=== PATIENT | female | born 1990 | race Caucasian/White ===

== ENCOUNTER 2016-11-27 21:00 | Emergency (ER) | payer OTHER ==
[2016-11-27 21:22] VITALS: BP 112/75; PULSE 89; RESP 18; TEMP 98.1; O2SAT 97
--- NOTE | 2016-11-27 22:20 | C.PDOC ---
History Of Present Illness Patient is a 26 year old female who presents to the ER with a complaint of cough , congestion, sore throat, and malaise for the past 4 days. Patient reports taking ibuprofen at home with no relief. Denies sick contact, fever, nausea, or vomiting. Time Seen by Provider: 11/27/16 21:39 Chief Complaint (Nursing): Flu-like Symptoms History Per: Patient History/Exam Limitations: no limitations Onset/Duration Of Symptoms: Days (4) Current Symptoms Are (Timing): Still Present Location Of Pain: Throat (sore) Associated Symptoms: Sore Throat, Cough, Nasal Congestion. denies: Fever, Nausea, Vomiting Past Medical History Reviewed: Historical Data, Nursing Documentation, Vital Signs Vital Signs: Last Vital Signs Temp 98.1 F 11/27/16 21:17 Pulse 89 11/27/16 21:17 Resp 18 11/27/16 21:17 BP 112/75 11/27/16 21:17 Pulse Ox 97 11/28/16 01:56 - Medical History PMH: Asthma, Cardia Arrhythmia - [facility] Procedures APPLICATION OF SPLINT (03/27/15) Family History: States: Unknown Family Hx - Social History Hx Tobacco Use: No Hx Alcohol Use: No Hx Substance Use: No - Immunization History Hx Tetanus Toxoid Vaccination: Yes Hx Influenza Vaccination: No Hx Pneumococcal Vaccination: No Review Of Systems Except As Marked, All Systems Reviewed And Found Negative. Constitutional: Negative for: Fever ENT: Positive for: Nose Congestion, Throat Pain (Sore) Cardiovascular: Negative for: Chest Pain, Palpitations Respiratory: Positive for: Cough. Negative for: Shortness of Breath Gastrointestinal: Negative for: Nausea, Vomiting Physical Exam - Physical Exam Appears: Well, Non-toxic Skin: Normal Color, Warm, Dry Head: Atraumatic, Normacephalic Nose: Normal, No Discharge Oral Mucosa: Moist Gingiva: Normal Appearing Throat: Other (Left tonsilar exudate) Lymphatic: Other (Tender submandibular adenopathy) Chest: Symmetrical Cardiovascular: Rhythm Regular Respiratory: Normal Breath Sounds, No Rales, No Rhonchi, No Wheezing Gastrointestinal/Abdominal: Soft, No Tenderness Neurological/Psych: Oriented x3, Normal Speech, Normal Cognition ED Course And Treatment O2 Sat by Pulse Oximetry: 97 (Room air) Pulse Ox Interpretation: Normal Disposition Counseled Patient/Family Regarding: Diagnosis, Need For Followup, Rx Given - Disposition Referrals: [facility] [Outside] Disposition: HOME/ ROUTINE Disposition Time: 22:17 Condition: GOOD Additional Instructions: Please follow up with PMD Increase PO fluids Gargle with warm salt water Return to ER if worse Prescriptions: Amoxicillin 500 mg PO TID #21 tab Benzonatate [Tessalon Perles] 100 mg PO TID #20 sgl Instructions: Pharyngitis (ED), Upper Respiratory Infection (ED) - Clinical Impression Clinical Impression: Upper respiratory infection, Pharyngitis - Scribe Statement The provider has reviewed the documentation as recorded by the Scribe David Sow All medical record entries made by the Rekhaiblita were at my direction and personally dictated by me. I have reviewed the chart and agree that the record accurately reflects my personal performance of the history, physical exam, medical decision making, and the department course for this patient. I have also personally directed, reviewed, and agree with the discharge instructions and disposition.
== END 2016-11-27 22:38 | disposition home or self-care (01) ==
LOC: C.ER 21:00
DX: J02.9 Acute pharyngitis, unspecified (principal)

== ENCOUNTER 2017-01-17 18:53 | Emergency (ER) | payer OTHER ==
[2017-01-17 19:13] VITALS: BP 120/66; PULSE 82; RESP 18; TEMP 97.7; O2SAT 100
[2017-01-17] MEDS ORDERED: Naproxen 550 mg Tab PO STA (19:39)
[2017-01-17] MEDS ORDERED: Naproxen 550 mg Tab PO ONE (19:42)
--- NOTE | 2017-01-17 20:13 | C.PDOC ---
History Of Present Illness 26 yo female c/o right thumb pain in 830 am when she lifted a double stroller over a curb. Notes h/o thumb sprain last year. Right hand dominant. TOok Tylenol without relief. Time Seen by Provider: 01/17/17 19:23 Chief Complaint (Nursing): Finger,Hand,&Wrist History Per: Patient History/Exam Limitations: no limitations Onset/Duration Of Symptoms: Hrs Current Symptoms Are (Timing): Still Present Past Medical History Vital Signs: Last Vital Signs Temp 97.7 F 01/17/17 19:12 Pulse 82 01/17/17 19:12 Resp 18 01/17/17 19:12 BP 120/66 01/17/17 19:12 Pulse Ox 100 01/17/17 19:12 - Medical History PMH: Asthma, Cardia Arrhythmia - [facility] Procedures APPLICATION OF SPLINT (03/27/15) Family History: States: Unknown Family Hx - Social History Hx Tobacco Use: No Hx Alcohol Use: No Hx Substance Use: No - Immunization History Hx Tetanus Toxoid Vaccination: Yes Hx Influenza Vaccination: No Hx Pneumococcal Vaccination: No Review Of Systems Except As Marked, All Systems Reviewed And Found Negative. Musculoskeletal: Positive for: Other ((+) thumb pain) Physical Exam - Physical Exam Appears: Well, Non-toxic, No Acute Distress Skin: Normal Color, Warm, Dry Head: Atraumatic, Normacephalic Eye(s): bilateral: Normal Inspection, EOMI Nose: Normal Oral Mucosa: Moist Neck: Normal, Normal ROM, Supple Chest: Symmetrical Respiratory: No Accessory Muscle Use (speaking in full sentences) Extremity: Normal ROM, Tenderness (PIP of right thumb. No snuff box tenderness. No wrist tenderness. No swelling. No ecchymosis), Capillary Refill (<2 sec), No Swelling Extremity: Bilateral: Normal Color And Temperature, Normal ROM Pulses: Left Radial: Normal, Right Radial: Normal Neurological/Psych: Oriented x3, Normal Speech, Normal Cognition, Normal Motor, Normal Sensation ED Course And Treatment O2 Sat by Pulse Oximetry: 100 Progress Note: Finger splint applied by technical clerk. Instructed ortho follow up in 1-2 days. Return to ER if symptoms persist or worsen. Disposition - Disposition Referrals: Marcio Barber III, MD [Staff Provider] - Disposition: HOME/ ROUTINE Disposition Time: 20:16 Condition: STABLE Additional Instructions: Follow up with referral physician in 1-2 days without fail for further evaluation. Take medications as prescribed. Return to the emergency department at any time if symptoms persist or worsen. Prescriptions: Naproxen [Naprosyn] 1 tab PO BID PRN #20 tab PRN Reason: Pain Instructions: Finger Sprain (ED) - Clinical Impression Clinical Impression: Sprained thumb
--- NOTE | 2017-01-18 12:43 | RAD ---
PROCEDURE: Right Thumb radiographs. HISTORY: trauma COMPARISON: Right thumb radiographs performed 03/27/15 TECHNIQUE: AP radiograph of the right hand, as well as spot oblique and lateral images of thumb were obtained. FINDINGS: RIGHT THUMB: Unremarkable right 1st digit without acute displaced fracture identified. Remainder of the right hand (as seen on the AP view) grossly unremarkable. JOINTS: No dislocation. SOFT TISSUES: Soft tissue swelling. No evidence of radiopaque foreign body. OTHER FINDINGS: None. IMPRESSION: Soft tissue swelling. No acute displaced fracture or dislocation identified. If symptoms persist or if there is continued clinical concern, x-ray follow-up in 7-10 days should be considered.
== END 2017-01-17 20:39 | disposition home or self-care (01) ==
LOC: C.ER 18:53
DX: S63.601A Unspecified sprain of right thumb, initial encounter (principal); X50.0XXA Overexertion from strenuous movement or load, initial encounter; Y93.89 Activity, other specified; Y92.414 Local residential or business street as the place of occurrence of the external cause

== ENCOUNTER 2017-01-18 21:29 | Emergency (ER) | payer OTHER ==
[2017-01-18 21:42] VITALS: BP 122/85; PULSE 71; RESP 16; TEMP 98; O2SAT 99
--- NOTE | 2017-01-18 22:13 | C.PDOC ---
History Of Present Illness 26 yo female come in for re-evaluation of Right thumb pain developed for past 2 days. Pt reports, was seen here in ED yesterday, when xray performed with normal results. Splint applied. Pt sts, " today went to work and use my right hand and pain worsen". Pain is over Right thumb area, intermittent, aching, worse with thumb movement and 2nd,3rd finger extension. Otherwise, pt denies weakness, sensory or vascular deficits to Right hand. Ambulate to ED, noted aluminium finger splint on Right thumb. Time Seen by Provider: 01/18/17 21:50 Chief Complaint (Nursing): Finger,Hand,&Wrist History Per: Patient PMH Reviewed: Historical Data, Nursing Documentation, Vital Signs - Family History Family History: States: No Known Family Hx - Immunization History Hx Tetanus Toxoid Vaccination: Yes Hx Influenza Vaccination: No Hx Pneumococcal Vaccination: No Review Of Systems Except As Marked, All Systems Reviewed And Found Negative. Constitutional: Negative for: Fever, Chills Musculoskeletal: Positive for: Hand Pain Skin: Negative for: Rash, Bruising Neurological: Negative for: Weakness, Numbness Pedatric Physical Exam - Physical Exam Appears: Well Appearing, Non-toxic, No Acute Distress Skin: Normal Color, Warm, No Rash, No Ecchymosis Extremity: Normal ROM, Tenderness (MILD TENDERNESS OVER RIGHT THUMB. NO EDEMA, NO ERYTHEMA, NO NEUROVASCULAR DEFICIST DISTALLY.), Capillary Refill (LESS THAN 2SEC TO RIGHT HAND), No Deformity, No Swelling Neurological/Psych: Oriented x3, Normal Motor, Normal Sensation, Normal Reflexes ED Course And Treatment O2 Sat by Pulse Oximetry: 99 Pulse Ox Interpretation: Normal Progress Note: On re-evaluation, pt is afebrile, non-toxic. RUE: exam c/w Right thumb sprain, radial neuropathy. FAROM, not in any apparent distress. Splint applied. Pt advised. Ref to F/U with hand specialist in 2 days. Orthopedic Time Performed: 22:10 Time Out: Side verified, Site verified, Patient ID confirmed Procedure: Splint Type: Thumb spica Location: Right, Hand Consent obtained: Verbal Performed by: Mid-level Provider Diagnosis: Sprain Disposition Counseled Patient/Family Regarding: Diagnosis, Need For Followup - Disposition Referrals: Neeraj Chery [Medical Doctor] - Disposition: HOME/ ROUTINE Disposition Time: 22:10 Condition: STABLE Additional Instructions: Splint for 1 week Take medication as prescribed Follow up with Hand specialist in 2 days for re-evaluation as need Return if any worsening or new changes. Prescriptions: Ibuprofen [Motrin Tab] 600 mg PO Q6 #20 tab Instructions: Paresthesia (ED), Finger Sprain (ED) - Clinical Impression Clinical Impression: Finger sprain, Right radial neuritis
== END 2017-01-18 22:54 | disposition home or self-care (01) ==
LOC: C.ER 21:29
DX: S63.601D Unspecified sprain of right thumb, subsequent encounter (principal); X58.XXXD Exposure to other specified factors, subsequent encounter; M79.2 Neuralgia and neuritis, unspecified

== ENCOUNTER 2017-12-14 17:07 | Emergency (ER) | payer OTHER ==
[2017-12-14 17:16] VITALS: BMI 30.9
[2017-12-14 17:19] VITALS: BP 119/80; PULSE 68; RESP 18; TEMP 98.4; O2SAT 98
[2017-12-14] MEDS ORDERED: Albuterol-Ipratrop 3 mg / 0.5 (3 ml) UD ONE ×2 (17:24→18:09)
[2017-12-14] MEDS: Albuterol-Ipratrop 3 mg / 0.5 (3 ml) UD IH SCH ×2 (18:00→18:11)
--- NOTE | 2017-12-14 18:08 | C.PDOC ---
History Of Present Illness 27 year old female with a Hx of asthma and tachycardia presents to the ER with a complaint of difficulty breathing for the past 3 days, associated with a productive cough with dark yellow/green sputum. Patient states she has been using her pump with no relief. Denies fever, sore throat, recent travel, or sick contact. Time Seen by Provider: 12/14/17 17:24 Chief Complaint (Nursing): Cough, Cold, Congestion History Per: Patient History/Exam Limitations: no limitations Onset/Duration Of Symptoms: Days Current Symptoms Are (Timing): Still Present Location Of Pain: None Sick Contacts (Context): None Associated Symptoms: Cough, Sputum. denies: Fever, Sore Throat Ear Symptoms: Bilateral: None Recent travel outside of the [place]: No Past Medical History Reviewed: Historical Data, Nursing Documentation, Vital Signs Vital Signs: Last Vital Signs Temp 98.4 F 12/14/17 17:16 Pulse 68 12/14/17 17:16 Resp 18 12/14/17 17:16 BP 119/80 12/14/17 17:16 Pulse Ox 98 12/14/17 18:45 - Medical History PMH: Asthma, Cardia Arrhythmia - [facility] Procedures APPLICATION OF SPLINT (03/27/15) Family History: States: Unknown Family Hx - Social History Hx Tobacco Use: No Hx Alcohol Use: No Hx Substance Use: No - Immunization History Hx Tetanus Toxoid Vaccination: No Hx Influenza Vaccination: Yes Hx Pneumococcal Vaccination: No Review Of Systems Constitutional: Negative for: Fever, Chills ENT: Negative for: Throat Pain Cardiovascular: Negative for: Chest Pain Respiratory: Positive for: Cough, Sputum, Other (Difficulty breathing) Gastrointestinal: Negative for: Nausea, Vomiting Physical Exam - Physical Exam Appears: Non-toxic Skin: Normal Color, Warm, Dry Head: Atraumatic, Normacephalic Eye(s): bilateral: Normal Inspection Ear(s): Bilateral: Normal Nose: Normal Oral Mucosa: Moist Throat: Normal, No Erythema, No Exudate Neck: Normal, Supple Chest: Symmetrical, No Tenderness Cardiovascular: Rhythm Regular Respiratory: No Rales, No Rhonchi, Wheezing (Mild expiratory) Neurological/Psych: Oriented x3, Normal Speech ED Course And Treatment O2 Sat by Pulse Oximetry: 98 (Room air) Pulse Ox Interpretation: Normal Medical Decision Making Medical Decision Making: CXR ordered. Albuterol nebulizer administered. On reevaluation, patient is resting comfortably in the ER in no acute distress with clear breath sounds, will discharge home with instructions to follow up with PMD or return if symptoms worsen. Disposition - Disposition Referrals: Neeraj Chery [Medical Doctor] - Disposition: HOME/ ROUTINE Disposition Time: 18:46 Condition: IMPROVED Additional Instructions: Follow up with the medical doctor within 1-2 days. Return if worsened. Prescriptions: Albuterol 0.5% [Albuterol 0.5% Inhal Miriam (2.5 mg/0.5 ml) UD] 0.5 ml IH Q6 PRN # 20 neb PRN Reason: Wheezing Loratadine [Claritin] 10 mg PO DAILY #10 tab Nebulizer Accessories [Reusable Nebulizer Kit] 1 each MC Q4 #1 kit predniSONE [Prednisone] 20 mg PO BID #10 tab Instructions: Acute Bronchitis Forms: [employer] (Malaysian) - Clinical Impression Clinical Impression: Bronchitis - PA / PERSONAL CAREGIVER / Resident Statement MD/DO has reviewed & agrees with the documentation as recorded. - Scribe Statement The provider has reviewed the documentation as recorded by the Scriblita Sow All medical record entries made by the Rekhaiblita were at my direction and personally dictated by me. I have reviewed the chart and agree that the record accurately reflects my personal performance of the history, physical exam, medical decision making, and the department course for this patient. I have also personally directed, reviewed, and agree with the discharge instructions and disposition.
--- NOTE | 2017-12-14 18:09 | RAD ---
HISTORY: cough, wheeze, rhonchi COMPARISON: No prior. TECHNIQUE: Chest PA and lateral FINDINGS: LUNGS: No active pulmonary disease. PLEURA: No significant pleural effusion identified. No pneumothorax apparent. CARDIOVASCULAR: Normal. OSSEOUS STRUCTURES: No significant abnormalities. VISUALIZED UPPER ABDOMEN: Normal. OTHER FINDINGS: Bilateral nipple rings are present. IMPRESSION: No active disease.
--- NOTE | 2017-12-14 18:43 | C.PDOC ---
Time Seen by Provider: 12/14/17 17:24 Chief Complaint (Nursing): Cough, Cold, Congestion Past Medical History Vital Signs: Last Vital Signs Temp 98.4 F 12/14/17 17:16 Pulse 68 12/14/17 17:16 Resp 18 12/14/17 17:16 BP 119/80 12/14/17 17:16 Pulse Ox 98 12/14/17 18:12 - Medical History PMH: Asthma, Cardia Arrhythmia - [facility] Procedures APPLICATION OF SPLINT (03/27/15) Family History: States: Unknown Family Hx - Social History Hx Tobacco Use: No Hx Alcohol Use: No Hx Substance Use: No - Immunization History Hx Tetanus Toxoid Vaccination: No Hx Influenza Vaccination: Yes Hx Pneumococcal Vaccination: No ED Course And Treatment O2 Sat by Pulse Oximetry: 98 (Room air) Disposition - Disposition Referrals: Neeraj Chery [Medical Doctor] - Disposition: HOME/ ROUTINE Disposition Time: 18:40 Condition: IMPROVED Additional Instructions: Follow up with the medical doctor within 1-2 days. Return if worsened. Prescriptions: Albuterol 0.5% [Albuterol 0.5% Inhal Miriam (2.5 mg/0.5 ml) UD] 0.5 ml IH Q6 PRN # 20 neb PRN Reason: Wheezing Loratadine [Claritin] 10 mg PO DAILY #10 tab Nebulizer Accessories [Reusable Nebulizer Kit] 1 each MC Q4 #1 kit predniSONE [Prednisone] 20 mg PO BID #10 tab Instructions: Acute Bronchitis Forms: [facility] (Montenegrin) - Clinical Impression Clinical Impression: Bronchitis
== END 2017-12-14 18:50 | disposition home or self-care (01) ==
LOC: C.ER 17:07
DX: J40 Bronchitis, not specified as acute or chronic (principal)

== ENCOUNTER 2017-12-18 19:29 | Emergency (ER) | payer OTHER ==
[2017-12-18 19:30] VITALS: BMI 30.9
[2017-12-18 19:45] VITALS: O2SAT 99
[2017-12-18] MEDS ORDERED: Magnesium Sulfate 1 gm in D5W 1 GM/100 ML BAG IVPB ONE (20:19)
[2017-12-18] MEDS ORDERED: Albuterol 0.083% Inhal Sol (2.5 mg/3 mL) UD ONE (20:19)
[2017-12-18] MEDS ORDERED: Albuterol-Ipratrop 3 mg / 0.5 (3 ml) UD ONE (20:19)
[2017-12-18 20:20] LABS: BASO % 0.5 % (0.0-2.0); EOS % 0.1 % (0.0-4.0); HEMOGLOBIN 11.7 g/dL (11.0-16.0); LYMPH # 1.1 K/uL (1.0-4.3); LYMPH % 12.7 % (20.0-40.0); MEAN CELL VOLUME 87.7 fL (81.0-99.0); MEAN CORPUSCULAR HEMOGLOBIN 30.2 pg (27.0-31.0); MEAN CORPUSCULAR HGB CONC 34.5 g/dL (33.0-37.0); MONO # 0.3 K/uL (0.0-0.8); MONO % 3.6 % (0.0-10.0); NEUT # 7.5 K/uL (1.8-7.0); NEUT % 83.1 % (50.0-75.0); RBC 3.86 Mil/uL (3.80-5.20); RED CELL DISTRIBUTION WIDTH 12.8 % (11.5-14.5)
[2017-12-18] MEDS: Albuterol 0.083% Inhal Sol (2.5 mg/3 mL) UD INH STA (20:23)
[2017-12-18] MEDS: Albuterol-Ipratrop 3 mg / 0.5 (3 ml) UD IH STA (20:23)
[2017-12-18] MEDS: Magnesium Sulfate 1 gm in D5W 1 GM/100 ML BAG IV STA (20:24)
[2017-12-18 20:33] LABS: ALB/GLOB RATIO 1.2 (1.0-2.1); ALBUMIN 4.5 g/dL (3.5-5.0); ALT/SGPT 16 U/L (9-52); AST/SGOT 26 U/L (14-36); BLOOD UREA NITROGEN 10 mg/dL (7-17); CALCIUM 9.3 mg/dl (8.6-10.4); GFR AFRICAN-AMERICAN > 60; GFR NON-AFRICAN AMERICAN > 60
[2017-12-18 21:24] VITALS: BP 117/71; PULSE 90; RESP 18; TEMP 98.1
--- NOTE | 2017-12-18 21:30 | C.PDOC ---
Time Seen by Provider: 12/18/17 19:55 Chief Complaint (Nursing): Shortness Of Breath Past Medical History Vital Signs: Last Vital Signs Temp 98.1 F 12/18/17 21:21 Pulse 90 12/18/17 21:21 Resp 18 12/18/17 21:21 BP 117/71 12/18/17 21:21 Pulse Ox 99 12/18/17 21:21 - Medical History PMH: Asthma, Cardia Arrhythmia - [facility] Procedures APPLICATION OF SPLINT (03/27/15) Family History: States: Unknown Family Hx - Social History Hx Tobacco Use: No Hx Alcohol Use: No Hx Substance Use: No - Immunization History Hx Tetanus Toxoid Vaccination: No Hx Influenza Vaccination: Yes Hx Pneumococcal Vaccination: No ED Course And Treatment - Laboratory Results Result Diagrams: 12/18/17 20:16 12/18/17 20:16 O2 Sat by Pulse Oximetry: 99 Disposition - Disposition Disposition: HOME/ ROUTINE Disposition Time: 21:29 Condition: STABLE Additional Instructions: Follow up with your PMD within 1-2 days. Return to ED if feel worse. Instructions: Asthma in Adults - Clinical Impression Clinical Impression: Asthma attack
--- NOTE | 2017-12-18 21:40 | C.PDOC ---
History Of Present Illness 27 year old female presents to ED c/o persistent coughing and wheezing for 5 days. Patient was seen here 5 days ago for coughing and wheezing, had a normal chest XR, was discharged home with Albuterol and Prednisone. She states she was taking Prednisone, using her nebulizer and pump, however she has no relief of her symptoms. Patient saw her doctor today who prescribed a Medrol dose pack. Patient sts she still was wheezing before she came to ED. Time Seen by Provider: 12/18/17 19:55 Chief Complaint (Nursing): Shortness Of Breath History Per: Patient History/Exam Limitations: no limitations Onset/Duration Of Symptoms: Days Past Medical History Reviewed: Historical Data, Nursing Documentation, Vital Signs Vital Signs: Last Vital Signs Temp 98.1 F 12/18/17 21:21 Pulse 90 12/18/17 21:21 Resp 18 12/18/17 21:21 BP 117/71 12/18/17 21:21 Pulse Ox 99 12/18/17 22:15 - Medical History PMH: Asthma, Cardia Arrhythmia Other PMH: skull fracture at 6 yo - [facility] Procedures APPLICATION OF SPLINT (03/27/15) Family History: States: Unknown Family Hx - Social History Hx Tobacco Use: No Hx Alcohol Use: No Hx Substance Use: No - Immunization History Hx Tetanus Toxoid Vaccination: No Hx Influenza Vaccination: Yes Hx Pneumococcal Vaccination: No Review Of Systems Except As Marked, All Systems Reviewed And Found Negative. Respiratory: Positive for: Cough, Wheezing Physical Exam - Physical Exam Appears: Non-toxic, No Acute Distress Skin: Normal Color, Warm Head: Atraumatic, Normacephalic Eye(s): bilateral: Normal Inspection Ear(s): Bilateral: Normal Nose: Normal Oral Mucosa: Moist Neck: Normal, Supple Chest: Symmetrical, No Deformity, No Tenderness Cardiovascular: Rhythm Regular, No Murmur Respiratory: No Accessory Muscle Use, No Rales, No Rhonchi, Wheezing (minimal expiratory wheezing) Gastrointestinal/Abdominal: Soft, No Tenderness Neurological/Psych: Oriented x3, Normal Speech, Normal Cognition ED Course And Treatment - Laboratory Results Result Diagrams: 12/18/17 20:16 12/18/17 20:16 O2 Sat by Pulse Oximetry: 99 (RA) Pulse Ox Interpretation: Normal Progress Note: Patient was given Solu-Medrol IV, Magnesium 1 g IV, 1 Duoneb, via neb and Albuterol via neb. On Re-evaluation, patient is feeling better. Patient is stable for discharge and was advised to follow-up with her PMD in 1- 2 days. Disposition Counseled Patient/Family Regarding: Diagnosis, Need For Followup - Disposition Disposition: HOME/ ROUTINE Disposition Time: 21:29 Condition: STABLE Additional Instructions: Follow up with your PMD within 1-2 days. Return to ED if feel worse. Instructions: Asthma in Adults Forms: [employer] (Martiniquais) - Clinical Impression Clinical Impression: Asthma attack - PA / SCHOOL BUS TECHNICIAN / Resident Statement MD/DO has reviewed & agrees with the documentation as recorded. - Scribe Statement The provider has reviewed the documentation as recorded by the Scribe (Ludmila Alex) All medical record entries made by the Scribe were at my direction and personally dictated by me. I have reviewed the chart and agree that the record accurately reflects my personal performance of the history, physical exam, medical decision making, and the department course for this patient. I have also personally directed, reviewed, and agree with the discharge instructions and disposition.
== END 2017-12-18 21:43 | disposition home or self-care (01) ==
LOC: C.ER 19:29
DX: J45.909 Unspecified asthma, uncomplicated (principal)
CPT/HCPCS: 80053; 85025; 96374; 99284; J2930; J3475